=== PATIENT | female | born 1965 | race African-American/Black ===

== ENCOUNTER 2019-04-16 11:23 | Emergency (ER) | payer BC, OTHER ==
[~2019-04-16] VITALS: Ht 165.1 cm; Wt 101.2 kg
--- NOTE | 2019-04-16 12:38 | RAD ---
CT ABDOMEN PELVIS WO CONTRAST History: Flank pain Technique: Noncontrast examination of the abdomen and pelvis. Coronal and sagittal reconstructions were performed. Exposure: One or more of the following individualized dose reduction techniques were utilized for this examination: 1. Automated exposure control 2. Adjustment of the mA and/or kV according to patient size 3. Use of iterative reconstruction technique. Comparison: None Findings: Lower chest: No consolidation or pleural effusion. Abdomen and pelvis: The liver, spleen, adrenal glands, pancreas and gallbladder are unremarkable. Small right superior renal hypodensity measures 8 mm, likely cyst. No renal, ureteral or urinary bladder calculus. No hydronephrosis. Decompressed urinary bladder. Colonic diverticulosis. Normal appendix. No evidence of bowel obstruction. No pathologic lymphadenopathy. No ascites. Pelvic contents are unremarkable. Bones: No pathologic osseous lesions. Multilevel lumbar spondylosis most prominent L5-S1. Impression: 1. No obstructing urolithiasis. 2. Small right renal cyst. Electronically signed by: Sanjay Vora DO (04/16/2019 12:35 PM) [facility]
[2019-04-16 13:01] LABS: BILIRUBIN,URINE NEGATIVE (NEG); CLARITY,URINE CLEAR; COLOR,URINE YELLOW; NITRITE,URINE NEGATIVE (NEG); PROTEIN,URINE NEGATIVE (NEG-TRACE)
[2019-04-16 13:06] LABS: BACTERIA,URINE FEW /HPF (0-FEW); RBC,URINE 0 /HPF (0-2); SQUAMOUS EPITHELIAL CELL,UR MANY /LPF
--- NOTE | 2019-04-16 13:08 | PHYS DOC ---
Past Medical History Past Medical History: No Pertinent History Past Surgical History: Tubal ligation Alcohol Use: None Drug Use: None Adult General Chief Complaint Chief Complaint: FLANK PAIN HPI HPI Patient is a 53 year old female who presents with R flank pain that started on Friday. She was sent from [facility] urgent care. His been having accompanied symptoms and nausea. The patient rates her pain as 9 out of 10 in severity and sharp. The patient denies any medical history. Review of Systems Review of Systems Constitutional: Denies fever or chills [] Eyes: Denies change in visual acuity, redness, or eye pain [] HENT: Denies nasal congestion or sore throat [] Respiratory: Denies cough or shortness of breath [] Cardiovascular: No additional information not addressed in HPI [] GI: Reports abdominal pain, nausea, Denies vomiting, bloody stools or diarrhea [] : Denies dysuria or hematuria [] Musculoskeletal: Denies back pain or joint pain [] Integument: Denies rash or skin lesions [] Neurologic: Denies headache, focal weakness or sensory changes [] Endocrine: Denies polyuria or polydipsia [] Complete systems were reviewed and found to be within normal limits, except as documented in this note. Current Medications Current Medications Current Medications Medications (Trade) Dose Ordered Sig/Citlaly Start Time Stop Time Status Last Admin Dose Admin Morphine Sulfate (Morphine Sulfate) 4 mg 1X ONCE 04/16/19 13:15 04/16/19 13:19 DC Ondansetron HCl (Zofran) 4 mg 1X ONCE 04/16/19 13:15 04/16/19 13:16 DC Sodium Chloride 1,000 ml @ 1,000 mls/hr 1X ONCE 04/16/19 13:15 04/16/19 14:14 DC 04/16/19 13:14 1,000 MLS/HR Allergies Allergies Allergies Coded Allergies Type Severity Reaction Last Updated Verified Tetanus Vaccines and Toxoid Allergy Severe Unknown 04/16/19 Yes acetaminophen Allergy Severe Hives 04/16/19 Yes oxycodone Allergy Severe Hives 04/16/19 Yes Physical Exam Physical Exam Constitutional: Well developed, well nourished, no acute distress, non-toxic appearance. [] HENT: Normocephalic, atraumatic, bilateral external ears normal, oropharynx moist, no oral exudates, nose normal. [] Eyes: PERRLA, EOMI, conjunctiva normal, no discharge. [] Neck: Normal range of motion, no tenderness, supple, no stridor. [] Cardiovascular:Heart rate regular rhythm, no murmur [] Lungs & Thorax: Bilateral breath sounds clear to auscultation [] Abdomen: Bowel sounds normal, soft,RUQ tenderness + garcia's sign, no masses, no pulsatile masses. [] Skin: Warm, dry, no erythema, no rash. [] Back: No tenderness, no CVA tenderness. [] Extremities: No tenderness, no cyanosis, no clubbing, ROM intact, no edema. [] Neurologic: Alert and oriented X 3, normal motor function, normal sensory function, no focal deficits noted. [] Psychologic: Affect normal, judgement normal, mood normal. [] Current Patient Data Vital Signs Vital Signs Date Time Temp Pulse Resp B/P (MAP) Pulse Ox O2 Delivery O2 Flow Rate FiO2 04/16/19 12:26 97.6 82 18 107/58 (74) 100 Room Air 97.6 Lab Values Laboratory Tests Test 04/16/19 12:50 04/16/19 13:13 Urine Collection Type Unknown Urine Color Yellow Urine Clarity Clear Urine pH 6.0 Urine Specific [place] 1.025 Urine Protein Negative mg/dL (NEG-TRACE) Urine Glucose (UA) Negative mg/dL (NEG) Urine Ketones (Stick) 15 mg/dL (NEG) Urine Blood Negative (NEG) Urine Nitrite Negative (NEG) Urine Bilirubin Negative (NEG) Urine Urobilinogen Dipstick 1.0 mg/dL (0.2 mg/dL) Urine Leukocyte Esterase Negative (NEG) Urine RBC 0 /HPF (0-2) Urine WBC 1-4 /HPF (0-4) Urine Squamous Epithelial Cells Many /LPF Urine Bacteria Few /HPF (0-FEW) Urine Mucus Mod /LPF White Blood Count 8.2 x10^3/uL (4.0-11.0) Red Blood Count 3.94 x10^6/uL (3.50-5.40) Hemoglobin 11.6 g/dL (12.0-15.5) L Hematocrit 34.9 % (36.0-47.0) L Mean Corpuscular Volume 89 fL (79-100) Mean Corpuscular Hemoglobin 29 pg (25-35) Mean Corpuscular Hemoglobin Concent 33 g/dL (31-37) Red Cell Distribution Width 14.1 % (11.5-14.5) Platelet Count 359 x10^3/uL (140-400) Neutrophils (%) (Auto) 74 % (31-73) H Lymphocytes (%) (Auto) 21 % (24-48) L Monocytes (%) (Auto) 5 % (0-9) Eosinophils (%) (Auto) 0 % (0-3) Basophils (%) (Auto) 0 % (0-3) Neutrophils # (Auto) 6.1 x10^3/uL (1.8-7.7) Lymphocytes # (Auto) 1.7 x10^3/uL (1.0-4.8) Monocytes # (Auto) 0.4 x10^3/uL (0.0-1.1) Eosinophils # (Auto) 0.0 x10^3/uL (0.0-0.7) Basophils # (Auto) 0.0 x10^3/uL (0.0-0.2) Sodium Level 140 mmol/L (136-145) Potassium Level 4.4 mmol/L (3.5-5.1) Chloride Level 102 mmol/L (98-107) Carbon Dioxide Level 27 mmol/L (21-32) Anion Gap 11 (6-14) Blood Urea Nitrogen 8 mg/dL (7-20) Creatinine 0.9 mg/dL (0.6-1.0) Estimated GFR (Cockcroft-Gault) 79.6 BUN/Creatinine Ratio 9 (6-20) Glucose Level 93 mg/dL (70-99) Calcium Level 9.1 mg/dL (8.5-10.1) Total Bilirubin 0.4 mg/dL (0.2-1.0) Aspartate Amino Transferase (AST) 19 U/L (15-37) Alanine Aminotransferase (ALT) 14 U/L (14-59) Alkaline Phosphatase 68 U/L (46-116) Total Protein 8.5 g/dL (6.4-8.2) H Albumin 3.5 g/dL (3.4-5.0) Albumin/Globulin Ratio 0.7 (1.0-1.7) L Lipase 41 U/L (73-393) L Laboratory Tests 04/16/19 13:13 Laboratory Tests 04/16/19 13:13 EKG EKG [] Radiology/Procedures Radiology/Procedures [facility] [address] [place] [address] IMAGING REPORT Signed PATIENT: FERNANDEZ ZUNIGA ACCOUNT: [id number] : 1965 LOCATION: ER AGE: 53 SEX: F EXAM STATUS: REG ER ORD. PHYSICIAN: AMURILIO ROLON APRN REASON: flank pain PROCEDURE: CT ABDOMEN PELVIS WO CONTRAST CT ABDOMEN PELVIS WO CONTRAST History: Flank pain Technique: Noncontrast examination of the abdomen and pelvis. Coronal and sagittal reconstructions were performed. Exposure: One or more of the following individualized dose reduction techniques were utilized for this examination: 1. Automated exposure control 2. Adjustment of the mA and/or kV according to patient size 3. Use of iterative reconstruction technique. Comparison: None Findings: Lower chest: No consolidation or pleural effusion. Abdomen and pelvis: The liver, spleen, adrenal glands, pancreas and gallbladder are unremarkable. Small right superior renal hypodensity measures 8 mm, likely cyst. No renal, ureteral or urinary bladder calculus. No hydronephrosis. Decompressed urinary bladder. Colonic diverticulosis. Normal appendix. No evidence of bowel obstruction. No pathologic lymphadenopathy. No ascites. Pelvic contents are unremarkable. Bones: No pathologic osseous lesions. Multilevel lumbar spondylosis most prominent L5-S1. Impression: 1. No obstructing urolithiasis. 2. Small right renal cyst. Electronically signed by: Sanjay Vora DO (04/16/2019 12:35 PM) [facility] DICTATED and SIGNED BY: SANJAY VORA DO DATE: 04/16/19 1235 [][facility] [address] [place] [address] IMAGING REPORT Signed PATIENT: FERNANDEZ ZUNIGA ACCOUNT: [id number] : 1965 LOCATION: ER AGE: 53 SEX: F EXAM STATUS: REG ER ORD. PHYSICIAN: MAURILIO ROLON APRN REASON: RUQ pain PROCEDURE: ABDOMEN LTD ABDOMEN LTD History: Right upper quadrant pain. Comparison: CT April 16, 2019. Technique: Transabdominal ultrasound images are obtained of the right upper quadrant. Findings: Visualized pancreas is unremarkable. Liver is normal in echogenicity. Right hepatic lobe measures 15.1 cm. Portal flow is hepatopedal. Gallbladder has an unremarkable appearance. Common bile duct caliber is normal measuring 3.4 mm in diameter. The right kidney measures 12.7 x 4.8 x 3.7 cm. Right superior renal cyst measures 1.2 cm. Visualized portions of the aorta and IVC have normal caliber. IMPRESSION: 1. Right renal cyst. 2. Otherwise, unremarkable right upper quadrant ultrasound. Electronically signed by: Sanjay Vora DO (04/16/2019 1:52 PM) [facility] DICTATED and SIGNED BY: SANJAY VORA DO DATE: 04/16/19 8587 Course & Med Decision Making Course & Med Decision Making Pertinent Labs and Imaging studies reviewed. (See chart for details) Will get CT, labs, and will get ultrasound. Will give supportive care. Labs are unremarkable. CT is negative for acute changes. Am wondering if she has pulled a muscle in her back will d/c home with muscle relaxers and zofran. Dragon Disclaimer Dragon Disclaimer This electronic medical record was generated, in whole or in part, using a voice recognition dictation system. Departure Departure Impression: Primary Impression: Abdominal pain Disposition: HOME, SELF-CARE Condition: STABLE Referrals: HADLEY DYSON MD (PCP) Patient Instructions: Abdominal Pain Additional Instructions: Thank you for visiting [facility]. We appreciate you trusting us with your care. If any additional problems come up don't hesitate to return to visit us. Please follow up with your primary care provider so they can plan additional care if needed and know about the problem that you had. If symptoms worsen come back to the Emergency Department. Any concerning symptoms that start such as chest pain, shortness of air, weakness or numbness on one side of the body, running high fevers or any other concerning symptoms return to the ER. Please fill your medications at any pharmacy and follow the prescription instructions. Scripts Orphenadrine Citrate (ORPHENADRINE CITRATE) 100 Mg Tablet.er 100 MG PO BID PRN for MUSCLE PAIN for 5 Days, #10 TAB.SR Prov: MAURILIO ROLON PR[employer]ER 11/1/19 Ondansetron (ONDANSETRON ODT) 4 Mg Tab.rapdis 1 TAB PO PRN Q6-8HRS PRN for NAUSEA, #16 TAB Prov: MAURILIO ROLON APRN 04/16/19 Problem Qualifiers Primary Impression: Abdominal pain Abdominal location: unspecified location Qualified Codes: R10.9 - Unspecified abdominal pain MAURILIO ROLON APRN Apr 16, 2019 13:08
[2019-04-16] MEDS ORDERED: IV NORMAL SALINE 1000ML BAG 1,000 ML IV ONE (13:15)
[2019-04-16] MEDS ORDERED: ONDANSETRON PF 4 MG/2 ML VIAL. IV ONE (13:15)
[2019-04-16] MEDS ORDERED: MORPHINE SULFATE 4 MG/ML VIAL. IV ONE (13:15)
[2019-04-16 13:34] LABS: BASO % 0 % (0-3); CALCIUM 9.1 mg/dL (8.5-10.1); CREATININE 0.9 mg/dL (0.6-1.0); EOS % 0 % (0-3); GFR 79.6; HEMATOCRIT 34.9 % (36.0-47.0); HEMOGLOBIN 11.6 g/dL (12.0-15.5); LYMPH # 1.7 x10^3/uL (1.0-4.8); LYMPH % 21 % (24-48); MEAN CORPUSCULAR HEMOGLOBIN 29 pg (25-35); MEAN CORPUSCULAR HGB CONC 33 g/dL (31-37); MEAN CORPUSCULAR VOLUME 89 fL (79-100); MONO # 0.4 x10^3/uL (0.0-1.1); MONO % 5 % (0-9); NEUT # 6.1 x10^3/uL (1.8-7.7); NEUT % 74 % (31-73); PLATELET COUNT 359 x10^3/uL (140-400); POTASSIUM 4.4 mmol/L (3.5-5.1); RED BLOOD COUNT 3.94 x10^6/uL (3.50-5.40); RED CELL DISTRIBUTION WIDTH 14.1 % (11.5-14.5); WHITE BLOOD COUNT 8.2 x10^3/uL (4.0-11.0)
[2019-04-16 13:39] LABS: ALBUMIN 3.5 g/dL (3.4-5.0); ALBUMIN/GLOBULIN RATIO 0.7 (1.0-1.7); TOTAL BILIRUBIN 0.4 mg/dL (0.2-1.0); TOTAL PROTEIN 8.5 g/dL (6.4-8.2)
--- NOTE | 2019-04-16 13:55 | RAD ---
ABDOMEN LTD History: Right upper quadrant pain. Comparison: CT April 16, 2019. Technique: Transabdominal ultrasound images are obtained of the right upper quadrant. Findings: Visualized pancreas is unremarkable. Liver is normal in echogenicity. Right hepatic lobe measures 15.1 cm. Portal flow is hepatopedal. Gallbladder has an unremarkable appearance. Common bile duct caliber is normal measuring 3.4 mm in diameter. The right kidney measures 12.7 x 4.8 x 3.7 cm. Right superior renal cyst measures 1.2 cm. Visualized portions of the aorta and IVC have normal caliber. IMPRESSION: 1. Right renal cyst. 2. Otherwise, unremarkable right upper quadrant ultrasound. Electronically signed by: Sanjay Vora DO (04/16/2019 1:52 PM) [facility]
[2019-04-16] MEDS ORDERED: ONDA4TAB12 PO (14:23)
[2019-04-16] MEDS ORDERED: ORPH100T PO (14:23)
[2019-04-16] MEDS ORDERED: fentaNYL PF VIAL 100 MCG/2 ML VIAL IV ONE (14:45)
[2019-04-16] MEDS ORDERED: ORPHENADRINE CITRATE 60 MG/2 ML VIAL. IM ONE (14:45)
[2019-04-16 15:17] VITALS: BP 133/85
== END 2019-04-16 15:35 | disposition home or self-care (01) ==
LOC: ER 11:23
DX: R10.11 Right upper quadrant pain (principal); R11.0 Nausea; Z98.51 Tubal ligation status; Z88.6 Allergy status to analgesic agent; Z88.5 Allergy status to narcotic agent; Z88.7 Allergy status to serum and vaccine
CPT/HCPCS: 36415; 74176; 76705; 80053; 81001; 83690; 85025; 96372; 96374; 96375; 99285; J2270; J2360; J2405; J3010; J7030

== ENCOUNTER 2019-04-23 15:04 | Emergency (ER) | payer BC ==
[~2019-04-23] VITALS: Ht 165.1 cm; Wt 99.3 kg
[~2019-04-23 15:04] MED LIST: ONDA4TAB12 PO; ORPH100T PO
[2019-04-23 15:56] LABS: BILIRUBIN,URINE NEGATIVE (NEG); CLARITY,URINE CLEAR; COLOR,URINE YELLOW; NITRITE,URINE NEGATIVE (NEG); PH,URINE 6.5; PROTEIN,URINE NEGATIVE (NEG-TRACE)
[2019-04-23 16:02] LABS: SQUAMOUS EPITHELIAL CELL,UR MOD /LPF
[2019-04-23 16:03] LABS: BACTERIA,URINE 0 /HPF (0-FEW)
[2019-04-23 16:07] LABS: BASO % 1 % (0-3); EOS # 0.1 x10^3/uL (0.0-0.7); EOS % 1 % (0-3); HEMATOCRIT 35.9 % (36.0-47.0); LYMPH % 24 % (24-48); MEAN CORPUSCULAR HEMOGLOBIN 30 pg (25-35); MEAN CORPUSCULAR HGB CONC 34 g/dL (31-37); MEAN CORPUSCULAR VOLUME 89 fL (79-100); MONO # 0.5 x10^3/uL (0.0-1.1); MONO % 5 % (0-9); NEUT # 5.9 x10^3/uL (1.8-7.7); NEUT % 70 % (31-73); PLATELET COUNT 317 x10^3/uL (140-400); RED BLOOD COUNT 4.02 x10^6/uL (3.50-5.40); RED CELL DISTRIBUTION WIDTH 14.2 % (11.5-14.5); WHITE BLOOD COUNT 8.5 x10^3/uL (4.0-11.0)
[2019-04-23] MEDS ORDERED: fentaNYL PF VIAL 100 MCG/2 ML VIAL IV ONE (16:15)
[2019-04-23] MEDS ORDERED: IV NORMAL SALINE 1000ML BAG 1,000 ML IV ONE (16:15)
[2019-04-23] MEDS ORDERED: ONDANSETRON PF 4 MG/2 ML VIAL. IV ONE (16:15)
[2019-04-23 16:28] LABS: CALCIUM 8.7 mg/dL (8.5-10.1); CREATININE 1.1 mg/dL (0.6-1.0); GFR 63.1; POTASSIUM 3.7 mmol/L (3.5-5.1)
[2019-04-23 16:34] LABS: ALBUMIN 3.4 g/dL (3.4-5.0); ALBUMIN/GLOBULIN RATIO 0.7 (1.0-1.7); TOTAL BILIRUBIN 0.4 mg/dL (0.2-1.0); TOTAL PROTEIN 8.4 g/dL (6.4-8.2)
--- NOTE | 2019-04-23 17:55 | PHYS DOC ---
Past Medical History Past Medical History: No Pertinent History (RADHA CHAVEZ APRN) Past Surgical History: Tubal ligation (RADHA CHAVEZ APRN) Alcohol Use: None Drug Use: None (RADHA CHAVEZ APRN) Attending Signature I have participated in the care of this patient and I have reviewed and agree with all pertinent clinical information above including history, exam, and recommendations. (BRITTANY SAXENA MD) Adult General Chief Complaint Chief Complaint: FLANK PAIN HPI HPI Patient is a 53 year old AA female who presents to the emergency department with complaints of continued right flank pain after taking an antibiotic for a recent urinary tract infection. Patient states she was seen here a week ago and was prescribed a muscle relaxer for back pain, the pain continued so she followed up with her primary care doctor on Friday who prescribed her some antibiotics for what he suspected was a urinary tract infection. Patient states she called Dr. Dyson again today who advised her to go to the emergency room for further workup and to make sure that she did not have a kidney infection. Patient denies any fever, abdominal pain, vomiting, diarrhea, dysuria, cough, shortness of breath, chest pain, or palpitations. She denies any numbness, tingling, or weakness. Patient states that she feels fatigued, she has had increased urinary frequency, blood in her urine, and right flank pain. She currently rates her pain a 5 out of 10 on the pain scale, she denies any alleviating factors, the pain increases with movement and palpation. She denies any saddle anesthesia, or loss of bowel/bladder control. All other ROS is neg unless otherwise noted in HPI. (RADHA CHAVEZ APRN) Review of Systems Review of Systems See Above (RADHA CHAVEZ APRN) Current Medications Current Medications Current Medications Medications (Trade) Dose Ordered Sig/Citlaly Start Time Stop Time Status Last Admin Dose Admin Fentanyl Citrate (Fentanyl 2ml Vial) 50 mcg 1X ONCE 04/23/19 16:15 04/23/19 16:16 DC 04/23/19 16:23 50 MCG Ondansetron HCl (Zofran) 4 mg 1X ONCE 04/23/19 16:15 04/23/19 16:16 DC 04/23/19 16:23 4 MG Sodium Chloride 1,000 ml @ 1,000 mls/hr 1X ONCE 04/23/19 16:15 04/23/19 17:14 DC 04/23/19 16:23 1,000 MLS/HR (BRITTANY SAXENA MD) Allergies Allergies Allergies Coded Allergies Type Severity Reaction Last Updated Verified Tetanus Vaccines and Toxoid Allergy Severe Unknown 04/16/19 Yes acetaminophen Allergy Severe Hives 04/16/19 Yes oxycodone Allergy Severe Hives 04/16/19 Yes (BRITTANY SAXENA MD) Physical Exam Physical Exam See Above Constitutional: Well developed, well nourished, no acute distress, non-toxic appearance. [] HENT: Normocephalic, atraumatic, bilateral external ears normal, nose normal. [] Eyes: PERRLA, EOMI, conjunctiva normal, no discharge. [] Neck: Normal range of motion, no stridor. [] Cardiovascular:Heart rate regular rhythm Lungs & Thorax: Bilateral breath sounds clear to auscultation [] Abdomen: Bowel sounds normal, soft, no tenderness, no masses, no pulsatile masses. [] Skin: Warm, dry, no erythema, no rash. [] Back: No bony tenderness, R lumbar paraspinal tenderness, R CVA tenderness, right straight leg lift negative [] Extremities: No cyanosis, ROM intact, no edema. [] Neurologic: Alert and oriented X 3, no focal deficits noted. [] Psychologic: Affect normal, judgement normal, mood normal. [] (RADHA CHAVEZ APRN) Current Patient Data Vital Signs Vital Signs Date Time Temp Pulse Resp B/P (MAP) Pulse Ox O2 Delivery O2 Flow Rate FiO2 04/23/19 18:00 76 18 133/66 (88) Room Air 04/23/19 17:00 98 04/23/19 15:36 98.5 98.5 (BRITTANY SAXENA MD) Lab Values Laboratory Tests Test 04/23/19 15:25 04/23/19 15:32 04/23/19 15:53 Urine Collection Type Unknown Urine Color Yellow Urine Clarity Clear Urine pH 6.5 Urine Specific [place] 1.015 Urine Protein Negative mg/dL (NEG-TRACE) Urine Glucose (UA) Negative mg/dL (NEG) Urine Ketones (Stick) Negative mg/dL (NEG) Urine Blood Negative (NEG) Urine Nitrite Negative (NEG) Urine Bilirubin Negative (NEG) Urine Urobilinogen Dipstick 1.0 mg/dL (0.2 mg/dL) Urine Leukocyte Esterase Negative (NEG) Urine RBC 3-5 /HPF (0-2) Urine WBC 1-4 /HPF (0-4) Urine Squamous Epithelial Cells Mod /LPF Urine Bacteria 0 /HPF (0-FEW) Urine Mucus Mod /LPF POC Urine HCG, Qualitative Hcg negative (Negative) White Blood Count 8.5 x10^3/uL (4.0-11.0) Red Blood Count 4.02 x10^6/uL (3.50-5.40) Hemoglobin 12.0 g/dL (12.0-15.5) Hematocrit 35.9 % (36.0-47.0) L Mean Corpuscular Volume 89 fL (79-100) Mean Corpuscular Hemoglobin 30 pg (25-35) Mean Corpuscular Hemoglobin Concent 34 g/dL (31-37) Red Cell Distribution Width 14.2 % (11.5-14.5) Platelet Count 317 x10^3/uL (140-400) Neutrophils (%) (Auto) 70 % (31-73) Lymphocytes (%) (Auto) 24 % (24-48) Monocytes (%) (Auto) 5 % (0-9) Eosinophils (%) (Auto) 1 % (0-3) Basophils (%) (Auto) 1 % (0-3) Neutrophils # (Auto) 5.9 x10^3/uL (1.8-7.7) Lymphocytes # (Auto) 2.0 x10^3/uL (1.0-4.8) Monocytes # (Auto) 0.5 x10^3/uL (0.0-1.1) Eosinophils # (Auto) 0.1 x10^3/uL (0.0-0.7) Basophils # (Auto) 0.0 x10^3/uL (0.0-0.2) Sodium Level 140 mmol/L (136-145) Potassium Level 3.7 mmol/L (3.5-5.1) Chloride Level 103 mmol/L (98-107) Carbon Dioxide Level 25 mmol/L (21-32) Anion Gap 12 (6-14) Blood Urea Nitrogen 11 mg/dL (7-20) Creatinine 1.1 mg/dL (0.6-1.0) H Estimated GFR (Cockcroft-Gault) 63.1 BUN/Creatinine Ratio 10 (6-20) Glucose Level 96 mg/dL (70-99) Calcium Level 8.7 mg/dL (8.5-10.1) Total Bilirubin 0.4 mg/dL (0.2-1.0) Aspartate Amino Transferase (AST) 13 U/L (15-37) L Alanine Aminotransferase (ALT) 11 U/L (14-59) L Alkaline Phosphatase 59 U/L (46-116) Total Protein 8.4 g/dL (6.4-8.2) H Albumin 3.4 g/dL (3.4-5.0) Albumin/Globulin Ratio 0.7 (1.0-1.7) L Laboratory Tests 04/23/19 15:53 Laboratory Tests 04/23/19 15:53 (BRITTANY SAXENA MD) EKG EKG [] (RADHA CHAVEZ APRN) Radiology/Procedures Radiology/Procedures PROCEDURE: LUMBAR SPINE 2-3V Three-view lumbar spine dated 04/23/2019. No comparison available. Clinical data indication: Low back pain. Findings 3 views lumbar spine show normal sagittal alignment. Vertebral body heights are maintained. Mild endplate hypertrophic changes throughout with mild disc space narrowing at L5-S1. Mild arthrosis lower lumbar apophyseal joints. IMPRESSION: 1. No acute radiographic abnormality. 2. Mild lower lumbar spondylosis[] (RADHA CHAVEZ APRN) Course & Med Decision Making Course & Med Decision Making Pertinent Labs and Imaging studies reviewed. (See chart for details) dx: R lumbar paraspinal strain UA not concerning for UTI, CBC unremarkable; CMP youth services specialist 1.1 otherwise unremarkable PT was given 1L NS, 4 mg of zofran, and 50 mcg of fentanyl IV. 1755- spoke with Dr. Dyson who is the patient's primary care physician and advised him of the normal laboratory data. Dr. Dyson requested that lumbar film be done. If there are no acute findings on the lumbar films he agrees to prescribing patient a 5 day burst of prednisone, and Flexeril. Instructed the patient to follow up with him in office next week. Lumbar films are negative for any acute findings Discussed these results with the patient advised that I will prescribe a burst of prednisone and Flexeril patient instructed to apply heat or ice to sore areas needed for comfort. Activity as tolerated. Follow-up with Dr. Dyson next week for reevaluation, return to the ER if symptoms get worse. Patient verbalized an understanding of home care, medications, follow-up, and re turn to ED instructions and was in agreement with the plan of care. [] (RADHA CHAVEZ APRN) Dragon Disclaimer Dragon Disclaimer This electronic medical record was generated, in whole or in part, using a voice recognition dictation system. (RADHA CHAVEZ APRN) Departure Departure Impression: Primary Impression: Right low back pain Disposition: HOME, SELF-CARE Condition: STABLE Referrals: HADLYE DYSON MD (PCP) Patient Instructions: Back Pain, Adult, [id number] Additional Instructions: Fill the prescriptions and use as directed. Apply ice or heat to sore areas as needed for comfort. Activity as tolerated. Follow up with Dr. Dyson next week, return to the ER if symptoms worsen. Scripts Cyclobenzaprine Hcl (CYCLOBENZAPRINE HCL) 10 Mg Tablet 1 TAB PO TID PRN for PAIN for 10 Days, #30 TAB 0 Refills Prov: RADHA CHAVEZ APRN 04/23/19 Prednisone (PREDNISONE) 50 Mg Tablet 1 TAB PO DAILY for 5 Days, #5 TAB 0 Refills Prov: RADHA CHAVEZ APRN 04/23/19 Problem Qualifiers Primary Impression: Right low back pain Chronicity: acute Sciatica presence: without sciatica Qualified Codes: M54.5 - Low back pain RADHA CHAVEZ APRN Apr 23, 2019 17:55 BRITTANY SAXENA MD Apr 24, 2019 05:28
[2019-04-23 18:00] VITALS: BP 133/66
--- NOTE | 2019-04-23 18:37 | RAD ---
Three-view lumbar spine dated 04/23/2019. No comparison available. Clinical data indication: Low back pain. Findings 3 views lumbar spine show normal sagittal alignment. Vertebral body heights are maintained. Mild endplate hypertrophic changes throughout with mild disc space narrowing at L5-S1. Mild arthrosis lower lumbar apophyseal joints. IMPRESSION: 1. No acute radiographic abnormality. 2. Mild lower lumbar spondylosis Electronically signed by: Dante Walter MD (04/23/2019 6:34 PM) [facility]
[2019-04-23] MEDS ORDERED: PRED50TA PO (19:04)
[2019-04-23] MEDS ORDERED: CYCL10TA2 PO (19:04)
== END 2019-04-23 19:27 | disposition home or self-care (01) ==
LOC: ER 15:04
DX: M54.5 Low back pain (principal); Z98.51 Tubal ligation status; Z88.5 Allergy status to narcotic agent; Z88.6 Allergy status to analgesic agent; Z88.7 Allergy status to serum and vaccine
CPT/HCPCS: 36415; 72100; 80053; 81001; 81025; 85025; 96374; 96375; 99285; J2405; J3010; J7030